=== PATIENT | female | born 1960 | race Caucasian/White ===

== ENCOUNTER 2017-01-12 07:58 | Emergency (ER) | payer BC ==
[~2017-01-12 07:58] MED LIST: AZULFIDINE500 MG; CELEBREX200 MG; OVCON-351 TAB; ZIAC 5-6.25 MG1 TAB
[2017-01-12] MEDS ORDERED: SYNTHROID88 MC1 PO (08:19)
[2017-01-12] MEDS ORDERED: CELEBREX200 M1 PO (08:20)
[2017-01-12] MEDS ORDERED: SULFASALAZINE500 M2 PO (08:21)
[2017-01-12] MEDS ORDERED: OLMESARTAN-HCT1 EACH PO (08:21)
[2017-01-12] MEDS ORDERED: GLUCOPHAGE500 M3 PO (08:22)
[2017-01-12 08:42] LABS: BASO % 0.4 % (0-2); EOS % 2.9 % (0-7); EOSINOPHIL ABSOLUTE COUNT 0.2 tho/cmm (0.0-0.7); HCT-HEMATOCRIT 37.4 % (34.0-49.0); HGB-HEMOGLOBIN 12.4 gm/dl (12.0-15.5); IMMATURE GRANULOCYTES ABSOLUTE 0.02 tho/cmm (0-0.03); IMMATURE GRANULOCYTES PERCENT 0.3 % (0-0.3); LYMPH % 25.3 % (20-45); MCH (MEAN CORPUSCULAR HGB) 28.6 pg (28.0-32.0); MCHC MEAN CORPUSCULAR HGB CONC 33.2 % (32.0-36.0); MCV (MEAN CELL VOLUME) 86.2 fl (82.0-96.0); MEAN PLATELET VOLUME 10.1 cmc (9.4-12.4); MONO % 8.4 % (0-12); MONOCYTE ABSOLUTE COUNT 0.7 tho/cmm (0.0-1.2); NEUTROPHIL ABSOLUTE COUNT 4.9 tho/cmm (1.6-8.0); NEUTROPHIL-AUTOMATED 4.9 tho/cmm (1.6-8.0); NEUTROPHILS % 62.7 % (40-80); PLATELET COUNT 243 tho/cmm (150-450); RED BLOOD COUNT 4.34 mil/cmm (4.00-5.20); RED CELL DISTRIBUTION WIDTH 13.8 % (12.4-16.4); WHITE BLOOD COUNT 7.8 tho/cmm (4.0-10.0)
[2017-01-12 08:53] LABS: ANION GAP 14 mmol/L (0-20); BLOOD UREA NITROGEN 39 mg/dl (6-24); CALCIUM 10.2 mg/dl (8.5-10.5); CARBON DIOXIDE-VENOUS 26 mmol/L (22-32); CHLORIDE 104 mmol/l (96-110); GLUCOSE 126 mg/dL (70-110); POTASSIUM 4.2 mmol/L (3.7-5.1); SODIUM 140 mmol/L (135-145); eGFR VALUE FOR BLACK 65 mL/Min
[2017-01-12] MEDS ORDERED: ZOFRAN ODT4 MG PO (09:37)
[2017-01-12] MEDS ORDERED: MECLIZINE HCL25 M3 PO (09:37)
== END 2017-01-12 09:50 ==
LOC: EDMED 07:58
PROVIDERS: Emergency Medicine
DX: E86.0 Dehydration (principal); R42 Dizziness and giddiness; E11.9 Type 2 diabetes mellitus without complications; I10 Essential (primary) hypertension; Z79.899 Other long term (current) drug therapy